=== PATIENT | female | born 1945 | race Caucasian/White ===

== ENCOUNTER 2020-01-27 07:00 | Inpatient (IN) | payer OTHER ==
[~2020-01-27] VITALS: Ht 165.1 cm; Wt 106.4 kg
[2020-02-01] MEDS ORDERED: METF-370 PO (10:30)
[2020-02-01] MEDS ORDERED: LEVO50TA7 PO (10:30)
[2020-02-01] MEDS ORDERED: MIRA50TA PO (10:30)
[2020-02-01] MEDS ORDERED: SIMV-13 PO (10:30)
[2020-02-06] MEDS ORDERED: PREGABALIN CAPSULE 75 MG CAP PO ONE (10:00)
[2020-02-06] MEDS ORDERED: CELECOXIB 100 MG CAP PO ONE (10:00)
[2020-02-06] MEDS ORDERED: ACETAMINOPHEN IV 1000 MG/100ML (10MG/ML) IV ONE (10:00)
[2020-02-06] MEDS ORDERED: ACETAMINOPHEN IV 100 ML IV ONE (10:04)
[2020-02-06] MEDS ORDERED: ROPIVACAINE 0.5% (5MG/ML) 20ML AMPULE IJ ONE (10:06)
[2020-02-06] MEDS ORDERED: TRANEXAMIC ACID 20 ML ONE (10:06)
[2020-02-06] MEDS ORDERED: MIDAZOLAM HCL 1MG/1ML-2 ML VIAL ONE (10:07)
[2020-02-06] MEDS ORDERED: TETRACAINE 1% INJ 2 ML VIAL IJ ONE (10:07)
[2020-02-06] MEDS ORDERED: fentaNYL CITRATE 100 MCG/2 ML VL ONE (10:07)
[2020-02-06] MEDS ORDERED: BUPIVACAINE 0.25% INJ 50ML VIAL ONE (10:07)
[2020-02-06] MEDS ORDERED: MORPHINE SULF(PF) 0.5MG/ML 10ML VIAL ONE (10:07)
[2020-02-06] MEDS ORDERED: VANCOMYCIN HCL 1000 MG VL ONE (10:08)
[2020-02-06] MEDS ORDERED: KETOROLAC TROMETH 30 MG/ML 1ML VIAL ONE (10:08)
[2020-02-06] MEDS ORDERED: DexAMETHasone SOD PHOS 10MG/1ML VIAL INJ ONE (10:09)
[2020-02-06] MEDS ORDERED: ePHEDrine SULFATE 50 MG/ML AMP ONE (10:09)
[2020-02-06] MEDS ORDERED: ONDANSETRON HCL 4 MG/2 ML VIAL ONE (10:09)
[2020-02-06] MEDS ORDERED: PROPOFOL 10 MG/ML 20 ML IV ONE (10:09)
[2020-02-06] MEDS ORDERED: GLYCOPYRROLATE 0.2 MG/ML 1ML VIAL ONE (10:09)
[2020-02-06] MEDS ORDERED: PHENYLEPHRINE HCL 10 MG/ML VL ONE (10:09)
[2020-02-06] MEDS ORDERED: traMADol HCL 50 MG TAB PO PRN (13:00)
[2020-02-06] MEDS ORDERED: MORPHINE SULF INJ 2 MG/ML SYRINGE 1ML IV PRN (13:00)
[2020-02-06] MEDS ORDERED: ACETAMINOPHEN 325 MG TAB PO PRN (13:00)
[2020-02-06] MEDS ORDERED: NITROGLYCERIN 0.4 MG SL TAB SL PRN (13:00)
[2020-02-06] MEDS ORDERED: DexAMETHasone SOD PHOS 10MG/1ML VIAL INJ IV PRN (13:15)
[2020-02-06] MEDS ORDERED: ONDANSETRON HCL 4 MG/2 ML VIAL IV PRN ×2 (13:15)
[2020-02-06] MEDS ORDERED: metFORMIN HYDROCHLORIDE 500 MG TAB PO ONE (13:15)
[2020-02-06] MEDS ORDERED: LEVOTHYROXINE SODIUM 50 MCG TAB PO ONE (13:15)
[2020-02-06] MEDS ORDERED: NALOXONE HCL 0.4 MG/ML VIAL IV PRN (13:15)
[2020-02-06] MEDS ORDERED: ENOXAPARIN SOD 40 MG/0.4 ML SYRINGE SC ONE (13:15)
[2020-02-06] MEDS ORDERED: ACCU-CHEK COMFORT CURVE STRIP VI ONE (13:15)
--- NOTE | 2020-02-06 15:11 | NUR ---
Patient transferred to unit in stable condition. Denies any pain at this time.
--- NOTE | 2020-02-06 15:45 | NUR ---
Patient resting comfortably in bed with no distress noted. Patient stable at this time.
[2020-02-06] MEDS: LACTATED RINGER'S 1,000 ML IV SCH ×2 (16:51→23:41)
[2020-02-06 16:55] VITALS: BP 156/69
--- NOTE | 2020-02-06 17:00 | NUR ---
Patient stable with ortho rn at bedside to place CPM machine on right lower extremity. Scheduled medications given per order. Patient denies any pain; did not want to take toradol at this time. Patient stable.
[2020-02-06] MEDS: SODIUM CHLOR 0.9% PF (SALINE LOCK) 10ML VIAL/SYR IV SCH ×2 (17:07→23:40)
[2020-02-06] MEDS: KETOROLAC TROMETH 30 MG/ML 1ML VIAL IV SCH ×3 (17:08→23:51)
[2020-02-06] MEDS: metFORMIN HYDROCHLORIDE 500 MG TAB PO SCH (17:09)
--- NOTE | 2020-02-06 18:40 | NUR ---
Patient resting comfortably in bed with no complaint of pain at this time. Patient stable since transfer to unit.
--- NOTE | 2020-02-06 19:35 | NUR ---
Opening Shift Note Assumed care of patient, awake and alert. No S/S of distress/SOB or pain. Dressing to the right knee clean, dry, and intact. Left knee on CPM, patient tolerating it well. Instructed on POC and to call for assist PRN, will continue to monitor for changes Q1hr and PRN.
[2020-02-06] MEDS: VANCOMYCIN 1GM/250ML 250 ML IV SCH (21:54)
[2020-02-06 22:00] VITALS: BP 128/57
[2020-02-06] MEDS: ZOCOR 40 MG PO SCH (22:00)
[2020-02-07 05:00] VITALS: BP 135/66
[2020-02-07] MEDS: KETOROLAC TROMETH 30 MG/ML 1ML VIAL IV SCH ×3 (05:46→17:47)
[2020-02-07] MEDS: SODIUM CHLOR 0.9% PF (SALINE LOCK) 10ML VIAL/SYR IV SCH ×3 (05:47→22:00)
[2020-02-07 06:16] LABS: Hematocrit 35.1 % (36.0-46.0); Hemoglobin 11.6 g/dL (12.2-16.2)
[2020-02-07 06:32] LABS: Potassium 3.7 mmol/L (3.5-5.1)
[2020-02-07 06:39] LABS: BUN/Creatinine Ratio 14.8; Bilirubin, Total 0.3 mg/dL (0.2-1.0); Calcium 8.4 mg/dL (8.5-10.1); Total Protein 6.2 g/dL (6.4-8.2)
[2020-02-07] MEDS: LEVOTHYROXINE SODIUM 50 MCG TAB PO SCH (06:51)
[2020-02-07] MEDS: metFORMIN HYDROCHLORIDE 500 MG TAB PO SCH ×2 (06:51→17:48)
--- NOTE | 2020-02-07 07:15 | NUR ---
Patient resting comfortably in bed with no compliant of any pain. Patient stable at this time.
[2020-02-07 08:20] VITALS: BP 124/53
[2020-02-07] MEDS: LACTATED RINGER'S 1,000 ML IV SCH ×2 (08:20→17:47)
--- NOTE | 2020-02-07 08:20 | NUR ---
Patient eating breakfast at this time. No distress noted. Patient stable.
[2020-02-07 09:00] VITALS: BP 124/58
[2020-02-07] MEDS: VANCOMYCIN 1GM/250ML 250 ML IV SCH (09:57)
--- NOTE | 2020-02-07 09:59 | NUR ---
Patient previously ambulated with walker in hallway and back to bed with OSCAR Mott at bedside. Scheduled IV abx and po pain medication given per order. Patient stable at this time.
[2020-02-07] MEDS ORDERED: ENOXAPARIN SOD 40 MG/0.4 ML SYRINGE SC SCH (10:00)
--- NOTE | 2020-02-07 12:50 | NUR ---
Scheduled medication given per order. Patient eating lunch. Stable at this time.
[2020-02-07 13:00] VITALS: BP 117/46
--- NOTE | 2020-02-07 14:30 | NUR ---
Patient resting comfortably in bed with CPM on left leg. Patient stable at this time.
--- NOTE | 2020-02-07 14:44 | NUR ---
D/C planning Per social service consult for a bedside commode, walker and home health service. Faxed clinical information [facility] who will assist with order. Per JANE Cunningham with [facility] patient has been accepted to [facility] and SG will deliver walker to bed side and bedside commode to home. Informed [place] Neumann.
--- NOTE | 2020-02-07 15:50 | NUR ---
Patient resting comfortably in bed with NA at bedside. Denies any pain at this time. Patient stable.
[2020-02-07 16:54] VITALS: BP 145/61
--- NOTE | 2020-02-07 17:54 | NUR ---
Scheduled IV toradol given for 9/10 pain in right knee. Metformin given as well; blood sugar: 136 mg/dl. Patient stable at this time.
--- NOTE | 2020-02-07 19:30 | NUR ---
Received report re. and care of pt. Currently resting in bed with R leg on CPM, active. Pt denies pain and discomfort and states she does not want to be given scheduled pain meds unless she is awakened and med discussed. This is due to experience elsewhere in past in which pt "was overdosed." Bed is low with HOB in semi-Chavarria's position. Call light at pt's side.
[2020-02-07 22:00] VITALS: BP 148/52
[2020-02-07] MEDS: ZOCOR 40 MG PO SCH (22:00)
[2020-02-08] MEDS: KETOROLAC TROMETH 30 MG/ML 1ML VIAL IV SCH ×3 (02:30→12:04)
--- NOTE | 2020-02-08 02:30 | NUR ---
RN in repeatedly to pt's bedside during rounds and to observe for s/sx discomfort; now able to get pt awake to discuss pain med, ketorolac. Pt stated, " I believe I could take a little." Full dose of Ketorolac 15mg IV given over 3 minutes.
[2020-02-08] MEDS: LACTATED RINGER'S 1,000 ML IV SCH (05:12)
[2020-02-08] MEDS: SODIUM CHLOR 0.9% PF (SALINE LOCK) 10ML VIAL/SYR IV SCH (05:13)
[2020-02-08 05:50] VITALS: BP 145/60
[2020-02-08 06:00] LABS: Hematocrit 31.7 % (36.0-46.0); Hemoglobin 10.6 g/dL (12.2-16.2)
[2020-02-08] MEDS: metFORMIN HYDROCHLORIDE 500 MG TAB PO SCH (06:22)
[2020-02-08] MEDS: LEVOTHYROXINE SODIUM 50 MCG TAB PO SCH (06:23)
--- NOTE | 2020-02-08 06:35 | NUR ---
Pt requested POC BG; done =123.
--- NOTE | 2020-02-08 07:25 | NUR ---
Patient stable with Aishwarya, PSYCHODRAMATIST at bedside.
[2020-02-08 08:00] VITALS: BP 184/68
[2020-02-08 09:00] VITALS: BP 184/68
--- NOTE | 2020-02-08 09:25 | NUR ---
Patient resting comfortably in bed with no distress noted. Patient stable at this time.
--- NOTE | 2020-02-08 10:30 | NUR ---
Patient used walker and was assisted to bathroom.
--- NOTE | 2020-02-08 10:40 | NUR ---
Patient assisted back to bed; emptied 1700mls from Ambrosio drainage bag. Patient now resting comfortably in bed with no distress noted.
--- NOTE | 2020-02-08 11:45 | NUR ---
assessment Patient is a 74 year old female who is alert and oriented. Patients cognitive abilities are intact. Prior to admission patient lived home with her [place] and functioned independently. Patient informed me she is able to care for her own ADLs. Per patient she will return home to her prior living arrangements post discharge and family will transport her home. Patient has been admitted for elective right knee replacement. Patient has a bedside commode for home use. Patient has a fww at bedside that has been ordered for her. Patient will need a CPM and home health for physical therapy on discharge. Patient informed me she feels safe returning home on discharge. Patients PCP is Dr Primitivo Johnson. I informed patient she has a right to speak to a social work specialist regarding all care. I informed patient she has a right to participate in any and all discharge planning. Patient has a POA and advanced directive. Patient verbalized understanding and agreed to discharge plan home. Addendum: 02/08/20 at 1157 by Blossom EID Amended: Links added.
--- NOTE | 2020-02-08 11:50 | NUR ---
Patient stable with Pernell paz at bedside.
--- NOTE | 2020-02-08 12:05 | NUR ---
Scheduled medication given per order. Patient resting quietly in bed with no distress noted.
--- NOTE | 2020-02-08 12:35 | NUR ---
Pt refused PT tx with c/o dizziness & nausea. RN informed. Addendum: 02/08/20 at 1241 by Pantera Guerra HOSPICE NURSE PRACTITIONER Amended: Links added.
[2020-02-08 13:00] VITALS: BP 128/84
[2020-02-08 13:30] VITALS: BP 128/84
--- NOTE | 2020-02-08 14:00 | NUR ---
Patient medicated for nausea. Patient stable at this time.
--- NOTE | 2020-02-08 15:05 | NUR ---
Discharge instructions Both written and verbal discharge instructions given to patient as ordered. Encourage to follow up with Dr. Lu in 10-[address] to [address] Dr. Kaba for an appointment as instructed. Written prescription given as well. All questions and concerns addressed. Patient verbalized understanding of instructions. Peripheral IV removed with catheter intact and no active bleeding; pressure dressing applied to site. Ambrosio catheter removed. Telemetry unit returned to ICU. Patient stable; sitting on side of bed at this time.
--- NOTE | 2020-02-08 15:50 | NUR ---
Discharge Patient taken to vehicle via wheelchair with all personal belongings, accompanied by staff member. No distress noted at time of departure.
--- NOTE | 2020-02-08 15:53 | NUR ---
D/C planning Per social service consult for CPM. [facility] and will have equipment to be deliver to patient home.
== END 2020-02-08 15:50 | disposition home health service (06) | DRG 470 ==
LOC: OVERFLOW 02-06 09:45 → EDSTATUS 02-06 12:30 → TELE-CENTR 02-06 15:12
PROVIDERS: ADMIT Orthopaedic Surgery Adult Reconstructive Orthopaedic Surgery; ATTEND Orthopaedic Surgery Adult Reconstructive Orthopaedic Surgery
PROC: 0SRC0J9 Replacement of Right Knee Joint with Synthetic Substitute, Cemented, Open Approach (ICD-10-PCS; principal; 2020-02-06 10:28)
DX: M17.11 Unilateral primary osteoarthritis, right knee (principal); Z88.0 Allergy status to penicillin; Z88.7 Allergy status to serum and vaccine; Z20.828 Contact with and (suspected) exposure to other viral communicable diseases
CPT/HCPCS: 36415; 73562; 80053; 82962; 85014; 85018; 86850; 86900; 86901; 97110; 97116; 97163; 97530; G0378; J0131; J1100; J1885; J2250; J2405; J2704; J3490

== ENCOUNTER 2020-02-12 11:51 | Observation (INO) | payer OTHER ==
[~2020-02-12] VITALS: Ht 167.6 cm; Wt 86.7 kg
[~2020-02-12 11:51] MED LIST: LEVO50TA7 PO; METF-370 PO; MIRA50TA PO; SIMV-13 PO
[2020-02-12 13:20] LABS: Basophils # (auto) 0 10 ^3/uL (0-0.2); Basophils % (auto) 0.4 % (0.0-2.0); Eosinophils # (auto) 0.1 10 ^3/uL (0-0.8); Eosinophils % (auto) 1.1 % (0.0-7.0); Hematocrit 37.6 % (36.0-46.0); Hemoglobin 12.3 g/dL (12.2-16.2); Lymphocytes # (auto) 2.8 10 ^3/uL (0.4-5.4); Lymphocytes % (auto) 23.7 % (10.0-50.0); Mean Corpuscular Hemoglobin 29.8 pg (28.0-32.0); Mean Corpuscular Hgb Conc. 32.6 g/dL (32.0-36.0); Mean Corpuscular Volume 91.2 fL (80.0-100.0); Monocytes # (auto) 1.3 10 ^3/uL (0-1.3); Monocytes % (auto) 11.2 % (0.0-12.0); Neutrophils # (auto) 7.6 10 ^3/uL (1.6-8.6); Neutrophils % (auto) 63.6 % (37.0-80.0); Platelet Count (auto) 334 10^3/uL (140-450); Red Blood Cells 4.12 10^6/uL (4.0-5.20); Red Cell Distribution Width 13.7 % (11.8-14.3); White Blood Cell 11.9 10^3/uL (4.4-10.8)
[2020-02-12 13:34] LABS: Albumin 3.1 g/dL (3.4-5.0); Anion Gap 7 (5-15); BUN/Creatinine Ratio 21.8; Blood Urea Nitrogen 19 mg/dL (7-18); Calcium 9.1 mg/dL (8.5-10.1); Carbon Dioxide 28 mmol/L (21-32); Chloride 104 mmol/L (98-107); GFR African American 81 mL/min; GFR Non-African American 67 mL/min; Glucose 103 mg/dL (74-106); Magnesium 2.4 mg/dL (1.6-2.6); Potassium 4.1 mmol/L (3.5-5.1); Sodium 139 mmol/L (136-145)
[2020-02-12 13:42] LABS: Alanine Aminotransferase 26 U/L (13-56); Alkaline Phosphatase 152 U/L (45-117); Aspartate Aminotransferase 18 U/L (15-37); Bilirubin, Total 0.6 mg/dL (0.2-1.0); Total Protein 7.7 g/dL (6.4-8.2)
[2020-02-12 14:56] LABS: Urine Bacteria FEW /hpf (None Seen); Urine Blood Negative /uL (Negative); Urine Specific Gravity 1.009 (1.001-1.035); Urine WBC 8 /hpf (0 - 5)
[2020-02-12] MEDS ORDERED: HYDROcodone-ACET 10/325MG TAB PO ONE (16:15)
[2020-02-12] MEDS ORDERED: DOCUSATE SOD 100 MG CAP PO PRN (18:15)
[2020-02-12] MEDS ORDERED: ONDANSETRON HCL 4 MG/2 ML VIAL IV PRN (18:15)
[2020-02-12] MEDS ORDERED: NITROGLYCERIN 0.4 MG SL TAB SL PRN (18:15)
[2020-02-12] MEDS ORDERED: MORPHINE SULF INJ 2 MG/ML SYRINGE 1ML IV PRN (18:15)
[2020-02-12] MEDS ORDERED: SODIUM CHLORIDE 0.9% 1,000 ML IV SCH (18:15)
[2020-02-12] MEDS: SODIUM CHLORIDE 0.9% 1,000 ML IV SCH (19:10)
[2020-02-12 19:35] VITALS: BP 141/100
[2020-02-12 19:45] VITALS: BP 141/100
[2020-02-12] MEDS: ATORVASTATIN 20 MG TAB PO SCH (21:51)
[2020-02-12] MEDS: HYDROcodone-ACET 10/325MG TAB PO PRN (22:32)
[2020-02-13] VITALS (7 sets, daily range): BP systolic 103–157; BP diastolic 58–82
[2020-02-13] MEDS: HYDROcodone-ACET 10/325MG TAB PO PRN ×3 (05:47→18:48)
[2020-02-13] MEDS: LEVOTHYROXINE SODIUM 50 MCG TAB PO SCH (05:47)
[2020-02-13] MEDS ORDERED: HYDR-4072 PO (07:57)
[2020-02-13] MEDS: SODIUM CHLORIDE 0.9% 1,000 ML IV SCH ×2 (08:05→21:25)
[2020-02-13] MEDS: ENOXAPARIN SOD 40 MG/0.4 ML SYRINGE SC SCH (10:23)
[2020-02-13] MEDS ORDERED: ASPI81CH43 GT (11:06)
[2020-02-13] MEDS ORDERED: DEXTROSE (50%) 50ML SYRG IV PRN (12:00)
[2020-02-13] MEDS ORDERED: FLUDROCORTISONE ACETATE 0.1 MG TAB PO ONE (16:45)
[2020-02-13] MEDS: InsuLIN REG 1unit/0.01ml Soln (100units/ml) SC SCH ×2 (17:39→22:00)
[2020-02-13] MEDS: ACCU-CHEK COMFORT CURVE STRIP VI SCH ×2 (17:39→22:29)
[2020-02-13] MEDS: ATORVASTATIN 20 MG TAB PO SCH (22:29)
[2020-02-14] MEDS: HYDROcodone-ACET 10/325MG TAB PO PRN ×2 (04:32→11:30)
[2020-02-14 05:09] VITALS: BP 158/67
[2020-02-14] MEDS: ACCU-CHEK COMFORT CURVE STRIP VI SCH ×2 (06:41→12:16)
[2020-02-14] MEDS: InsuLIN REG 1unit/0.01ml Soln (100units/ml) SC SCH ×2 (06:48→12:16)
[2020-02-14] MEDS: LEVOTHYROXINE SODIUM 50 MCG TAB PO SCH (06:49)
[2020-02-14] MEDS ORDERED: FLU01T PO (08:57)
[2020-02-14 09:00] VITALS: BP 131/59
[2020-02-14] MEDS ORDERED: FLUDROCORTISONE ACETATE 0.1 MG TAB PO SCH (10:00)
[2020-02-14] MEDS: SODIUM CHLORIDE 0.9% 1,000 ML IV SCH (11:16)
[2020-02-14] MEDS: ENOXAPARIN SOD 40 MG/0.4 ML SYRINGE SC SCH (11:30)
[2020-02-14 13:00] VITALS: BP 154/68
== END 2020-02-14 15:55 | disposition home health service (06) ==
LOC: ER 11:51 → EDBD 11:51 → TELE 18:22 → TELE-WESTW 19:32
PROVIDERS: ADMIT Hospitalist; ATTEND Hospitalist
DX: R55 Syncope and collapse (principal); Z20.828 Contact with and (suspected) exposure to other viral communicable diseases; E11.9 Type 2 diabetes mellitus without complications; Z79.82 Long term (current) use of aspirin; E03.9 Hypothyroidism, unspecified; E78.5 Hyperlipidemia, unspecified; I10 Essential (primary) hypertension; E66.9 Obesity, unspecified; D84.9 Immunodeficiency, unspecified; Z96.651 Presence of right artificial knee joint
CPT/HCPCS: 36415; 70450; 70551; 71045; 73562; 80053; 81001; 82962; 83036; 83605; 83735; 84484; 85025; 87040; 87081; 87426; 93005; 93306; 93886; 93971; 96360; 96361; 96372; 97163; 99285; C9803; G0378; J1650; J1815; U0003

== ENCOUNTER 2020-12-11 06:14 | Inpatient (IN) | payer OTHER ==
[~2020-12-11] VITALS: Ht 162.6 cm; Wt 89.5 kg
[~2020-12-11 06:14] MED LIST changes: +ASPI81CH43 GT; +CLOP75TA70 PO; +EZET10TA22 PO; +FLU01T PO; +HYDR-4072 PO
[2020-12-11] MEDS ORDERED: EPINEPHrine HCL 1 MG/1 ML AMP ONE (07:02)
[2020-12-11] MEDS ORDERED: VANCOMYCIN HCL 1000 MG VL ONE (07:02)
[2020-12-11] MEDS ORDERED: TRANEXAMIC ACID 20 ML ONE (07:04)
[2020-12-11] MEDS ORDERED: CLINDAMYCIN 900MG IV 50 ML IV ONE (07:24)
[2020-12-11] MEDS ORDERED: TETRACAINE 1% INJ 2 ML VIAL IJ ONE (07:26)
[2020-12-11] MEDS ORDERED: MIDAZOLAM HCL 2MG/2ML 2ml VIAL (1mg/ml) ONE (07:34)
[2020-12-11] MEDS ORDERED: MORPHINE SULF PF 2 MG/2 ML SYRG ONE ×2 (07:34→08:04)
[2020-12-11] MEDS ORDERED: fentaNYL CITRATE 100 MCG/2 ML VL ONE ×2 (07:34→08:23)
[2020-12-11] MEDS ORDERED: ROCURONIUM 10MG/ML 10ML VIAL IV ONE (08:01)
[2020-12-11] MEDS ORDERED: BUPIVACAINE 0.25% INJ 50ML VIAL ONE (08:04)
[2020-12-11] MEDS ORDERED: KETOROLAC TROMETH 30 MG/ML 1ML VIAL ONE (08:05)
[2020-12-11] MEDS ORDERED: ONDANSETRON HCL 4 MG/2 ML VIAL ONE (09:28)
[2020-12-11] MEDS ORDERED: HYDROmorphone HCL 2 MG/ML VL ONE ×2 (09:37→15:35)
[2020-12-11] MEDS: Ezetimibe (Zetia) 10 MG TAB PO SCH (10:00)
[2020-12-11] MEDS: MIRABEGRON BASE PO SCH (10:00)
[2020-12-11] MEDS ORDERED: GLYCOPYRROLATE 0.2 MG/ML 1ML VIAL ONE (10:05)
[2020-12-11] MEDS ORDERED: NEOSTIGMINE 1 MG/ML INJ (10mg/10ML VIAL) ONE (10:06)
[2020-12-11] MEDS ORDERED: LABETALOL HCL 5 MG/ML ML 20ML VIAL IV ONE (10:07)
[2020-12-11] MEDS ORDERED: HYDROmorphone HCL 2 MG/ML VL IV PRN ×3 (10:30→11:30)
[2020-12-11] MEDS ORDERED: ONDANSETRON HCL 4 MG/2 ML VIAL IV PRN ×2 (10:30→11:30)
[2020-12-11 11:58] LABS: Basophils # (auto) 0 10 ^3/uL (0-0.2); Basophils % (auto) 0.1 % (0.0-2.0); Eosinophils # (auto) 0.1 10 ^3/uL (0-0.8); Eosinophils % (auto) 0.4 % (0.0-7.0); Hematocrit 32.3 % (36.0-46.0); Hemoglobin 10.6 g/dL (12.2-16.2); Lymphocytes # (auto) 2.3 10 ^3/uL (0.4-5.4); Lymphocytes % (auto) 13.8 % (10.0-50.0); Mean Corpuscular Hemoglobin 29.1 pg (28.0-32.0); Mean Corpuscular Hgb Conc. 32.8 g/dL (32.0-36.0); Mean Corpuscular Volume 88.7 fL (80.0-100.0); Neutrophils # (auto) 13.2 10 ^3/uL (1.6-8.6); Neutrophils % (auto) 79.7 % (37.0-80.0); Red Blood Cells 3.64 10^6/uL (4.0-5.20); Red Cell Distribution Width 14.4 % (11.8-14.3); White Blood Cell 16.6 10^3/uL (4.4-10.8)
[2020-12-11] MEDS: ACETAMINOPHEN 325 MG TAB PO SCH ×2 (12:00→18:00)
[2020-12-11] MEDS: KETOROLAC TROMETH 30 MG/ML 1ML VIAL IV SCH ×2 (12:00→18:00)
[2020-12-11] MEDS: FLUDROCORTISONE ACETATE 0.1 MG TAB PO SCH (12:30)
[2020-12-11] MEDS: SODIUM CHLORIDE 0.9% 1,000 ML IV SCH (12:30)
[2020-12-11 13:11] LABS: Potassium 4.4 mmol/L (3.5-5.1)
[2020-12-11 13:19] LABS: BUN/Creatinine Ratio 24.1; Calcium 8.3 mg/dL (8.5-10.1)
[2020-12-11] MEDS ORDERED: CLINDAMYCIN 600MG IV 50 ML IV SCH (14:00)
[2020-12-11] MEDS: CLINDAMYCIN 600MG IV 50 ML IV SCH (16:00)
[2020-12-11 17:15] VITALS: BP 135/60
[2020-12-11] MEDS ORDERED: TRAM50TA2 PO (17:51)
[2020-12-11] MEDS: metFORMIN HYDROCHLORIDE 500 MG TAB PO SCH (18:43)
[2020-12-11 22:00] VITALS: BP 122/59
[2020-12-12] MEDS: ACETAMINOPHEN 325 MG TAB PO SCH ×4 (00:11→17:55)
[2020-12-12] MEDS: CLINDAMYCIN 600MG IV 50 ML IV SCH (00:11)
[2020-12-12] MEDS: SODIUM CHLORIDE 0.9% 1,000 ML IV SCH ×4 (00:11→21:28)
[2020-12-12] MEDS: KETOROLAC TROMETH 30 MG/ML 1ML VIAL IV SCH ×4 (00:11→17:54)
[2020-12-12] MEDS: oxyCODONE HCL 5MG TAB PO PRN ×2 (04:43→10:50)
[2020-12-12 05:00] VITALS: BP 123/49
[2020-12-12 05:33] LABS: Basophils # (auto) 0 10 ^3/uL (0-0.2); Basophils % (auto) 0.2 % (0.0-2.0); Eosinophils # (auto) 0.1 10 ^3/uL (0-0.8); Eosinophils % (auto) 0.6 % (0.0-7.0); Hematocrit 26.2 % (36.0-46.0); Hemoglobin 8.6 g/dL (12.2-16.2); Lymphocytes # (auto) 2.8 10 ^3/uL (0.4-5.4); Mean Corpuscular Hemoglobin 29.1 pg (28.0-32.0); Mean Corpuscular Hgb Conc. 32.8 g/dL (32.0-36.0); Mean Corpuscular Volume 88.6 fL (80.0-100.0); Monocytes # (auto) 1.2 10 ^3/uL (0-1.3); Neutrophils # (auto) 6.6 10 ^3/uL (1.6-8.6); Neutrophils % (auto) 62.2 % (37.0-80.0); Red Blood Cells 2.95 10^6/uL (4.0-5.20); Red Cell Distribution Width 14.6 % (11.8-14.3); White Blood Cell 10.7 10^3/uL (4.4-10.8)
[2020-12-12 06:15] LABS: BUN/Creatinine Ratio 16.3; Calcium 7.9 mg/dL (8.5-10.1)
[2020-12-12 08:00] VITALS: BP 125/54
[2020-12-12] MEDS: metFORMIN HYDROCHLORIDE 500 MG TAB PO SCH ×2 (08:39→17:54)
[2020-12-12] MEDS: LEVOTHYROXINE SODIUM 50 MCG TAB PO SCH (08:39)
[2020-12-12] MEDS: MIRABEGRON BASE PO SCH (10:00)
[2020-12-12] MEDS: Ezetimibe (Zetia) 10 MG TAB PO SCH (10:00)
[2020-12-12] MEDS: FLUDROCORTISONE ACETATE 0.1 MG TAB PO SCH (10:49)
[2020-12-12] MEDS: ENOXAPARIN SOD 40 MG/0.4 ML SYRINGE SC SCH (10:49)
[2020-12-12 12:00] VITALS: BP 129/57
[2020-12-12 16:00] VITALS: BP 103/64
[2020-12-12] MEDS ORDERED: IOHEXOL 350 MG/ML 100ML IJ ONE (16:09)
[2020-12-12 22:00] VITALS: BP 144/58
[2020-12-13] MEDS: KETOROLAC TROMETH 30 MG/ML 1ML VIAL IV SCH ×5 (00:24→23:53)
[2020-12-13] MEDS: ACETAMINOPHEN 325 MG TAB PO SCH ×5 (00:25→23:54)
[2020-12-13 05:00] VITALS: BP 141/59
[2020-12-13 06:34] LABS: Basophils # (auto) 0 10 ^3/uL (0-0.2); Eosinophils # (auto) 0.3 10 ^3/uL (0-0.8); Hemoglobin 7.5 g/dL (12.2-16.2); Lymphocytes # (auto) 2.3 10 ^3/uL (0.4-5.4); Mean Corpuscular Hemoglobin 29.5 pg (28.0-32.0); Mean Corpuscular Hgb Conc. 33.3 g/dL (32.0-36.0)
[2020-12-13 06:37] LABS: Basophils % (auto) 0.5 % (0.0-2.0); Eosinophils % (auto) 3.3 % (0.0-7.0); Hematocrit 22.5 % (36.0-46.0); Lymphocytes % (auto) 24.7 % (10.0-50.0); Mean Corpuscular Volume 88.7 fL (80.0-100.0); Monocytes # (auto) 1.1 10 ^3/uL (0-1.3); Monocytes % (auto) 12.1 % (0.0-12.0); Neutrophils # (auto) 5.4 10 ^3/uL (1.6-8.6); Neutrophils % (auto) 59.4 % (37.0-80.0); Red Blood Cells 2.54 10^6/uL (4.0-5.20); Red Cell Distribution Width 14.2 % (11.8-14.3); White Blood Cell 9.1 10^3/uL (4.4-10.8)
[2020-12-13] MEDS: metFORMIN HYDROCHLORIDE 500 MG TAB PO SCH ×2 (07:12→17:20)
[2020-12-13] MEDS: LEVOTHYROXINE SODIUM 50 MCG TAB PO SCH (07:12)
[2020-12-13 09:00] VITALS: BP 127/76
[2020-12-13] MEDS: SODIUM CHLORIDE 0.9% 1,000 ML IV SCH ×2 (09:34→12:30)
[2020-12-13] MEDS: CLOPIDOGREL BISULFATE 75 MG TAB PO SCH (09:35)
[2020-12-13] MEDS: FLUDROCORTISONE ACETATE 0.1 MG TAB PO SCH (09:35)
[2020-12-13] MEDS: oxyCODONE HCL 5MG TAB PO PRN ×2 (09:36→14:09)
[2020-12-13] MEDS: ENOXAPARIN SOD 40 MG/0.4 ML SYRINGE SC SCH (09:36)
[2020-12-13] MEDS: Ezetimibe (Zetia) 10 MG TAB PO SCH (09:46)
[2020-12-13] MEDS: MIRABEGRON BASE PO SCH (09:46)
[2020-12-13 13:00] VITALS: BP 137/69
[2020-12-13] MEDS ORDERED: ASPirin 81 mg TAB PO ONE (14:00)
[2020-12-13 16:54] VITALS: BP 131/48
[2020-12-13] MEDS: diphenhdrAMINE HCL 25 MG CAP PO PRN (19:00)
[2020-12-13 22:16] VITALS: BP 162/73
[2020-12-14] VITALS (9 sets, daily range): BP systolic 112–172; BP diastolic 50–81
[2020-12-14] MEDS: SODIUM CHLORIDE 0.9% 1,000 ML IV SCH ×4 (01:13→19:30)
[2020-12-14 05:14] LABS: Basophils # (auto) 0 10 ^3/uL (0-0.2); Eosinophils # (auto) 0.2 10 ^3/uL (0-0.8); Eosinophils % (auto) 1.9 % (0.0-7.0); Hemoglobin 7.9 g/dL (12.2-16.2); Lymphocytes # (auto) 1.9 10 ^3/uL (0.4-5.4); Monocytes # (auto) 0.7 10 ^3/uL (0-1.3); Neutrophils # (auto) 7.1 10 ^3/uL (1.6-8.6); White Blood Cell 9.9 10^3/uL (4.4-10.8)
[2020-12-14 05:18] LABS: Basophils % (auto) 0.3 % (0.0-2.0); Hematocrit 22.8 % (36.0-46.0); Lymphocytes % (auto) 18.8 % (10.0-50.0); Mean Corpuscular Hemoglobin 30.5 pg (28.0-32.0); Mean Corpuscular Hgb Conc. 34.6 g/dL (32.0-36.0); Mean Corpuscular Volume 88.2 fL (80.0-100.0); Monocytes % (auto) 6.8 % (0.0-12.0); Neutrophils % (auto) 72.2 % (37.0-80.0); Red Blood Cells 2.58 10^6/uL (4.0-5.20); Red Cell Distribution Width 14.2 % (11.8-14.3)
[2020-12-14] MEDS: KETOROLAC TROMETH 30 MG/ML 1ML VIAL IV SCH ×4 (05:59→23:34)
[2020-12-14] MEDS: ACETAMINOPHEN 325 MG TAB PO SCH ×4 (06:00→23:36)
[2020-12-14] MEDS: LEVOTHYROXINE SODIUM 50 MCG TAB PO SCH (06:01)
[2020-12-14] MEDS: metFORMIN HYDROCHLORIDE 500 MG TAB PO SCH ×2 (06:46→18:00)
[2020-12-14] MEDS: ENOXAPARIN SOD 40 MG/0.4 ML SYRINGE SC SCH (09:28)
[2020-12-14] MEDS: FLUDROCORTISONE ACETATE 0.1 MG TAB PO SCH (09:29)
[2020-12-14] MEDS: CLOPIDOGREL BISULFATE 75 MG TAB PO SCH (09:29)
[2020-12-14] MEDS: MIRABEGRON BASE PO SCH (09:30)
[2020-12-14] MEDS: ASPirin 81 mg TAB PO SCH (09:30)
[2020-12-14] MEDS: Ezetimibe (Zetia) 10 MG TAB PO SCH (09:30)
[2020-12-15 05:00] VITALS: BP 153/67
[2020-12-15] MEDS: SODIUM CHLORIDE 0.9% 1,000 ML IV SCH (05:01)
[2020-12-15 05:37] LABS: Basophils # (auto) 0 10 ^3/uL (0-0.2); Basophils % (auto) 0.4 % (0.0-2.0); Eosinophils # (auto) 0.4 10 ^3/uL (0-0.8); Eosinophils % (auto) 4.2 % (0.0-7.0); Hematocrit 26.7 % (36.0-46.0); Hemoglobin 9.1 g/dL (12.2-16.2); Lymphocytes # (auto) 2.1 10 ^3/uL (0.4-5.4); Lymphocytes % (auto) 23.3 % (10.0-50.0); Mean Corpuscular Hemoglobin 29.9 pg (28.0-32.0); Mean Corpuscular Hgb Conc. 34.2 g/dL (32.0-36.0); Mean Corpuscular Volume 87.5 fL (80.0-100.0); Monocytes # (auto) 0.9 10 ^3/uL (0-1.3); Monocytes % (auto) 10.7 % (0.0-12.0); Neutrophils # (auto) 5.4 10 ^3/uL (1.6-8.6); Neutrophils % (auto) 61.4 % (37.0-80.0); Nucleated Red Blood Cells % 0.1 %; Red Blood Cells 3.06 10^6/uL (4.0-5.20); Red Cell Distribution Width 14.9 % (11.8-14.3); White Blood Cell 8.8 10^3/uL (4.4-10.8)
[2020-12-15] MEDS: KETOROLAC TROMETH 30 MG/ML 1ML VIAL IV SCH ×3 (06:17→17:30)
[2020-12-15] MEDS: ACETAMINOPHEN 325 MG TAB PO SCH (06:18)
[2020-12-15] MEDS: LEVOTHYROXINE SODIUM 50 MCG TAB PO SCH (07:01)
[2020-12-15] MEDS: metFORMIN HYDROCHLORIDE 500 MG TAB PO SCH ×2 (07:01→17:26)
[2020-12-15 09:00] VITALS: BP 166/71
[2020-12-15] MEDS: ASPirin 81 mg TAB PO SCH (09:36)
[2020-12-15] MEDS: MIRABEGRON BASE PO SCH (09:37)
[2020-12-15] MEDS: FLUDROCORTISONE ACETATE 0.1 MG TAB PO SCH (09:37)
[2020-12-15] MEDS: Ezetimibe (Zetia) 10 MG TAB PO SCH (09:37)
[2020-12-15] MEDS: CLOPIDOGREL BISULFATE 75 MG TAB PO SCH (09:38)
[2020-12-15] MEDS: ENOXAPARIN SOD 40 MG/0.4 ML SYRINGE SC SCH (09:38)
[2020-12-15] MEDS: oxyCODONE HCL 5MG TAB PO PRN (09:39)
[2020-12-15] MEDS ORDERED: DEXTROSE (50%) 50ML SYRG IV PRN (10:15)
[2020-12-15] MEDS ORDERED: ACETAMINOPHEN 325 MG TAB PO PRN (10:15)
[2020-12-15] MEDS: ACCU-CHEK COMFORT CURVE STRIP VI SCH ×3 (12:17→21:44)
[2020-12-15] MEDS: InsuLIN REG 1unit/0.01ml Soln (100units/ml) SC SCH ×3 (12:20→21:44)
[2020-12-15 13:00] VITALS: BP 155/70
[2020-12-15] MEDS: diphenhdrAMINE HCL 25 MG CAP PO PRN (13:10)
[2020-12-15 17:09] VITALS: BP 153/69
[2020-12-15 20:00] VITALS: BP 159/66
[2020-12-15 22:00] VITALS: BP 159/66
[2020-12-16] MEDS: KETOROLAC TROMETH 30 MG/ML 1ML VIAL IV SCH ×2 (00:42→06:00)
[2020-12-16 05:00] VITALS: BP 159/75
[2020-12-16 05:41] LABS: Cholesterol 132 mg/dL (< 200); HDL Cholesterol 23 mg/dL (40-59); LDL Cholesterol 87 mg/dL (< 100); Triglycerides 106 mg/dL (< 150)
[2020-12-16] MEDS: InsuLIN REG 1unit/0.01ml Soln (100units/ml) SC SCH ×2 (07:00→12:20)
[2020-12-16] MEDS: ACCU-CHEK COMFORT CURVE STRIP VI SCH ×2 (07:28→12:13)
[2020-12-16] MEDS: LEVOTHYROXINE SODIUM 50 MCG TAB PO SCH (07:28)
[2020-12-16] MEDS: metFORMIN HYDROCHLORIDE 500 MG TAB PO SCH (07:28)
[2020-12-16 07:55] VITALS: BP 149/80
[2020-12-16] MEDS: MIRABEGRON BASE PO SCH (10:00)
[2020-12-16] MEDS: Ezetimibe (Zetia) 10 MG TAB PO SCH (10:00)
[2020-12-16 12:00] VITALS: BP 155/54
[2020-12-16] MEDS: ASPirin 81 mg TAB PO SCH (12:27)
[2020-12-16] MEDS: ENOXAPARIN SOD 40 MG/0.4 ML SYRINGE SC SCH (12:27)
[2020-12-16] MEDS: CLOPIDOGREL BISULFATE 75 MG TAB PO SCH (12:27)
[2020-12-16] MEDS: FLUDROCORTISONE ACETATE 0.1 MG TAB PO SCH (12:28)
[2020-12-16 14:48] VITALS: BP 155/54
[2020-12-17] MEDS ORDERED: CLOPIDOGREL BISULFATE 75 MG TAB PO SCH (10:00)
[2020-12-17] MEDS ORDERED: ASPirin 81 mg TAB GT SCH (10:00)
== END 2020-12-16 15:50 | disposition home or self-care (01) | DRG 470 ==
LOC: SUR 06:14 → CENTRAL 06:15 → TELE-CENTR 12-14 18:50
PROVIDERS: ADMIT Orthopaedic Surgery; ATTEND Orthopaedic Surgery
PROC: 0SR90JZ Replacement of Right Hip Joint with Synthetic Substitute, Open Approach (ICD-10-PCS; principal; 2020-12-11 07:40)
PROC: 30233N1 Transfusion of Nonautologous Red Blood Cells into Peripheral Vein, Percutaneous Approach (ICD-10-PCS; 2020-12-14)
DX: M16.11 Unilateral primary osteoarthritis, right hip (principal); D62 Acute posthemorrhagic anemia; I97.821 Postprocedural cerebrovascular infarction following other surgery; H53.47 Heteronymous bilateral field defects; I95.9 Hypotension, unspecified; R00.0 Tachycardia, unspecified; E66.9 Obesity, unspecified; E11.9 Type 2 diabetes mellitus without complications; Z20.822 Contact with and (suspected) exposure to COVID-19; Y83.8 Other surgical procedures as the cause of abnormal reaction of the patient, or of later complication, without mention of misadventure at the time of the procedure; Y92.238 Other place in hospital as the place of occurrence of the external cause; Z68.33 Body mass index [BMI] 33.0-33.9, adult
CPT/HCPCS: 36415; 70450; 70496; 70498; 70551; 72170; 73501; 80048; 80061; 82962; 85025; 86850; 86900; 86901; 86920; 93306; 93886; 97110; 97116; 97163; 97530; A4565; C1776; G0378; J0171; J1815; J1885; J2250; J2405; J3490